=== PATIENT | female | born 1995 | race Caucasian/White ===

== ENCOUNTER 2019-12-03 12:12 | Emergency (ER) | payer SELFPAY ==
[~2019-12-03] VITALS: Ht 162.6 cm; Wt 92.1 kg
[2019-12-03 12:34] VITALS: Ht 162.6 cm; Wt 92.1 kg
[2019-12-03 15:24] LABS: BASOPHIL % 0.5 % (0-2); PLATELET COUNT 359 x10^3mcL (130-400)
[2019-12-03 15:28] LABS: RED CELL DISTRIBUTION WIDTH 15.6 % (11.5-14.5)
[2019-12-03 17:05] VITALS: BP 135/78
[2019-12-03 17:31] LABS: UA SPECIFIC GRAVITY >=1.030 (1.005-1.035); microscopic required? YES; urine erythrocyte 3+ (NEGATIVE)
== END 2019-12-03 17:05 | disposition home or self-care (01) ==
LOC: ED 12:12
PROVIDERS: Emergency Medicine
DX: N92.0 Excessive and frequent menstruation with regular cycle (principal)
CPT/HCPCS: 36415